=== PATIENT | female | born 1970 | race Caucasian/White ===

== ENCOUNTER 2021-05-29 08:44 | Emergency (ER) | payer MEDICAID, OTHER ==
[~2021-05-29] VITALS: Ht 165.1 cm; Wt 83.9 kg
[~2021-05-29 08:44] MED LIST: METF1000 PO
[2021-05-29 08:46] VITALS: BP 130/79
[2021-05-29] MEDS ORDERED: FAMOTIDINE 20 MG/2 ML VIAL IVP ONE (09:00)
[2021-05-29] MEDS ORDERED: NACL 0.9% 1,000 ML IV SCH (09:00)
--- NOTE | 2021-05-29 09:19 | NUR ---
DR. BROOKS BEDSIDE EVALUATING PT
--- NOTE | 2021-05-29 09:19 | NUR ---
20G IV ESTABLISHED IN R AC. 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
[2021-05-29 09:28] LABS: BASOPHILS % (AUTO) 0.2 % (0.0-2.0); EOSINOPHILS % (AUTO) 0.3 % (0.0-4.0); HEMATOCRIT 39.9 % (36-48); HEMOGLOBIN 13.7 g/dL (12.0-16.0); LYMPHOCYTES # (AUTO) 0.3 K/uL (2.5-16.5); LYMPHOCYTES % (AUTO) 3.1 % (20.5-51.1); MEAN CORPUSCULAR HEMOGLOBIN 30 pg (27-31); MEAN CORPUSCULAR HGB CONC 34 g/dL (33-37); MEAN CORPUSCULAR VOLUME 88.1 fL (80-94); MONOCYTES # (AUTO) 0.3 K/uL (0.8-1.0); MONOCYTES % (AUTO) 3.3 % (1.7-9.3); NEUTROPHILS # (AUTO) 8.9 K/uL (1.8-7.7); NEUTROPHILS % (AUTO) 93.1 % (42.2-75.2); PLATELET COUNT (AUTO) 263 K/uL (140-450); RED BLOOD CELL COUNT(AUTO) 4.53 MIL/uL (4.20-5.40); RED CELL DISTRIBUTION WIDTH 13.6 % (11.6-13.7); WHITE BLOOD COUNT (AUTO) 9.5 K/uL (4.8-10.8)
[2021-05-29] MEDS ORDERED: ONDANSETRON 4 MG/2 ML VIAL IVP ONE (09:30)
[2021-05-29] MEDS ORDERED: ALUMINUM HYD/MAG/SIMETHICONE 30 ML, DICYCLOMINE HCL LIQUID 20 MG, LIDOCAINE VISCOUS 2% ... PO ONE ×3 (09:30)
[2021-05-29] MEDS ORDERED: ALUMINUM HYD/MAG/SIMETHICONE 30 ML UDC ONE (09:37)
[2021-05-29] MEDS ORDERED: DICYCLOMINE HCL LIQUID 10 MG/5 ML UDC ONE (09:37)
[2021-05-29 09:47] LABS: ALBUMIN 3.7 g/dL (3.4-5.0); ANION GAP 15.4 (8-16); CARBON DIOXIDE 24.1 mmol/L (21-32); CREATININE 0.7 mg/dL (0.6-1.3); POTASSIUM 3.5 mmol/L (3.5-5.1)
--- NOTE | 2021-05-29 10:16 | NUR ---
51 YOF BIB WITH COMPLAINTS OF ABDOMINAL PAIN. SHE STATED THE PAIN STARTED YESTERDAY AFTERNOON. THE ONLY THING SHE RECALLS EATING IS PECANS AND AN EGG, OTHER THAN THAT SHE HAS NOT HAD ANYTHING TO EAT OR DRINK BECAUSE IT CAUSES HER NAUSEA AND VOMITING. WHEN SHE HAS VOMITED THE VOMIT IS A "YELLOW" COLOR WHICH LOOKS LIKE "PUS". SHE HAS NOT HAD SIMILAR SYMPTOMS IN THE PAST. PMH: DENIES
[2021-05-29 10:27] LABS: APPEARANCE,URINE CLEAR (CLEAR); BILIRUBIN,URINE NEGATIVE (NEGATIVE); BLOOD, URINE NEGATIVE (NEGATIVE); COLOR,URINE YELLOW (YELLOW); LEUKOCYTE ESTERASE ,URINE NEGATIVE (NEGATIVE); NITRITE, URINE NEGATIVE (NEGATIVE); UGLUCOSE TRACE (NEGATIVE)
[2021-05-29] MEDS ORDERED: ONDA-188 PO (12:09)
[2021-05-29] MEDS ORDERED: FAMO-90 PO (12:09)
[2021-05-29] MEDS ORDERED: ALUM355S59 PO (12:09)
[2021-05-29 12:25] VITALS: BP 127/82
--- NOTE | 2021-05-29 12:26 | NUR ---
Patient discharged with v/s stable. Written and verbal after care instructions given FOR GASTRITIS and explained. Patient alert, oriented and verbalized understanding of instructions. Ambulatory with steady gait. All questions addressed prior to discharge. ID band removed. Patient advised to follow up with PMD. Rx of MAALOX, PEPCID, AND ZOFRAN given. Patient educated on indication of medication including possible reaction and side effects. Opportunity to ask questions provided and answered.
--- NOTE | 2021-05-29 12:27 | NUR ---
The patient's care was reviewed and supervised by Chayo Sharif RN.
[2021-05-29 21:36] LABS: AMYLASE 49 U/L (25-115)
== END 2021-05-29 12:25 | disposition home or self-care (01) ==
LOC: MED 08:44
DX: K29.00 Acute gastritis without bleeding (principal); E11.9 Type 2 diabetes mellitus without complications; I10 Essential (primary) hypertension; Z90.49 Acquired absence of other specified parts of digestive tract; Z98.890 Other specified postprocedural states; Z79.899 Other long term (current) drug therapy; Z79.84 Long term (current) use of oral hypoglycemic drugs
CPT/HCPCS: 36415; 76705; 80053; 81003; 82150; 83690; 84703; 85025; 96361; 96374; 96375; 99284; J2405; J3490; J7030; Q0092